=== PATIENT | female | born 1985 | race Caucasian/White ===

== ENCOUNTER 2022-04-01 09:15 | Outpatient (CLI) | payer OTHER, SELFPAY ==
[2022-04-01 14:10] LABS: Cholesterol* 184 mg/dL (90-199)
[2022-04-01 14:11] LABS: HDL Cholesterol* 39 mg/dL (>=50); LDL Cholesterol Calculated 108 mg/dL (<100); Triglycerides* 186 mg/dL (40-149)
[2022-04-01 14:23] LABS: Vitamin D 25 Hydroxy* 36 ng/mL (30-80)
== END 2022-04-01 09:16 | disposition home or self-care (01) ==
PROVIDERS: PCP Family Medicine; Visit Provider Family Medicine
DX: Z01.419 Encounter for gynecological examination (general) (routine) without abnormal findings (principal); N92.1 Excessive and frequent menstruation with irregular cycle; F41.9 Anxiety disorder, unspecified; Z13.6 Encounter for screening for cardiovascular disorders
CPT/HCPCS: 80061; 82306

== ENCOUNTER 2022-06-27 14:26 | Outpatient (CLI) | payer OTHER, SELFPAY ==
--- NOTE | 2022-06-27 15:00 | CRLHL7_ITS ---
For Patients: As a result of the Century Cures Act, medical imaging exams and procedure reports are released immediately into your electronic medical record. You may view this report before your referring provider. If you have questions, please contact your health care provider. INDICATION: Enlarged lymph nodes. TECHNIQUE: Ultrasound soft tissue neck. FINDINGS: Palpable lesion: Right neck under chin according to sales support assistant. Two structures measuring 1.4 x 0.9 x 1.2, and 1.1 x 0.5 x 0.8 cm. Sonographically, these appear to be lymph nodes. The larger lesion has hypoechoic nodular areas involving the lymph node cortex. The smaller lesion has slight asymmetrical thickening of the lymph node cortex. Both lymph nodes have a central echogenic fatty hilus. Miscellaneous: There are additional cervical lymph nodes in the right and left cervical chain with benign features. IMPRESSION: 1. Enlarged lymph nodes in the area of symptoms indicated. These demonstrate some atypical sonographic features. 2. Additional characterization could be performed with a CT scan of the neck or the lesions could be considered for image-guided sampling. 3. Nonspecific appearance of remaining bilateral cervical lymph nodes. Dictated by Flynn Wellington MD @ 06/30/2022 1:35:38 PM (Electronically Signed)
== END 2022-06-27 14:27 | disposition home or self-care (01) ==
PROVIDERS: PCP Family Medicine; Visit Provider Family Medicine
DX: R59.1 Generalized enlarged lymph nodes (principal)
CPT/HCPCS: 76536

== ENCOUNTER 2022-07-14 07:52 | Outpatient (CLI) | payer OTHER, SELFPAY ==
--- NOTE | 2022-07-14 08:00 | CRLHL7_ITS ---
For Patients: As a result of the Century Cures Act, medical imaging exams and procedure reports are released immediately into your electronic medical record. You may view this report before your referring provider. If you have questions, please contact your health care provider. INDICATION: Atypical lymph nodes. TECHNIQUE: CT of the neck soft tissues performed with IV contrast. Contrast: 95 cc Isovue 370. COMPARISON: Soft tissue neck ultrasound 06/27/2022. FINDINGS: The nasopharynx, oropharynx and hypopharynx appear unremarkable. The supraglottic, glottic and infraglottic spaces are preserved. The parotid and submandibular glands appear unremarkable. The thyroid gland is normal. A palpable marker is placed at the patient`s right submandibular region. There are prominent, however not enlarged by CT size criteria level 1A lymph nodes measuring up to 7 mm in maximal short axis diameter. Additional nonenlarged level 1B lymph nodes are noted. No suspicious CT features. The visualized major vascular structures appear intact. The visualized intracranial components appear grossly intact. Visualized orbits and contents appear unremarkable. The paranasal sinuses are clear as visualized. Lung apices are clear. Mild reversal of the cervical lordosis. IMPRESSION: Prominent, however nonenlarged by CT size criteria level 1A and 1B lymph nodes. These could be reactive, without suspicious CT features. Consider clinical and/or ultrasound follow-up as indicated to assess stability over time. Please note that all CT scans at this facility use dose modulation, iterative reconstruction, and/or weight-based dosing when appropriate to reduce radiation dose to as low as reasonably achievable. Dictated by Fernando Thompson MD @ 07/14/2022 3:57:13 PM (Electronically Signed)
== END 2022-07-14 07:53 | disposition home or self-care (01) ==
PROVIDERS: PCP Family Medicine; Visit Provider Family Medicine
DX: R59.1 Generalized enlarged lymph nodes (principal)
CPT/HCPCS: 70491; Q9967

== ENCOUNTER 2023-07-06 08:55 | Outpatient (CLI) | payer OTHER, SELFPAY | END 2023-07-06 08:56 | disposition home or self-care (01) | LOC: NFLDREF 07-18 00:57 | PROVIDERS: PCP Family Medicine; Referring Provider Family Medicine; Visit Provider Family Medicine | DX: R53.83 Other fatigue (principal); R73.03 Prediabetes; Z13.220 Encounter for screening for lipoid disorders; Z13.21 Encounter for screening for nutritional disorder | CPT/HCPCS: 80048; 80061; 82306; 84443 ==

== ENCOUNTER 2023-07-16 15:52 | Outpatient (CLI) | payer OTHER, SELFPAY ==
[2023-07-16 23:20] LABS: Chlamydia DNA Amplified* NOT DETECTED (No Detected); GC DNA Amplified* NOT DETECTED (No Detected)
== END 2023-07-16 15:53 | disposition home or self-care (01) ==
LOC: LKVREF 15:53
PROVIDERS: PCP Family Medicine; Visit Provider Family Medicine
DX: J02.9 Acute pharyngitis, unspecified (principal)
CPT/HCPCS: 87491; 87591

== ENCOUNTER 2023-07-27 08:43 | Outpatient (CLI) | payer OTHER, SELFPAY ==
[2023-07-27 16:10] LABS: Chlamydia DNA Amplified* NOT DETECTED (No Detected); GC DNA Amplified* NOT DETECTED (No Detected)
== END 2023-07-27 08:44 | disposition home or self-care (01) ==
PROVIDERS: PCP Family Medicine; Visit Provider Physician Assistant
DX: Z11.3 Encounter for screening for infections with a predominantly sexual mode of transmission (principal); N92.1 Excessive and frequent menstruation with irregular cycle
CPT/HCPCS: 83498; 84146; 84270; 84402; 84403; 84443; 84703; 86592; 86703; 86803; 87340; 87491; 87591

== ENCOUNTER 2023-08-03 13:34 | Outpatient (CLI) | payer OTHER, SELFPAY ==
--- NOTE | 2023-08-03 14:00 | US_ITS ---
Patient: JARVIS CLEMENSCOMBE Facility:?[facility] Patient ID:?[id number] Site Patient ID:?[id number]. Site :?[id number] Study:?US-Pelvis PELVIS TA & TV-08/03/2023 2:43:59 PM Ordering Physician:ELAINE JAIN Final Report: INDICATION: Excessive & frequent menstruation COMPARISON: none TECHNIQUE: 2D carmen scale and color Doppler images were acquired of the pelvis using a transabdominal and transvaginal approach. FINDINGS: Bicornuate or didelphys uterus. Right side of the uterus measures 7.7 x 3.5 x 3.8 cm and the left side of the uterus measures 8.4 x 3.1 x 3.4 cm. No uterine fibroid. The myometrium has a normal uniform echotexture. The endometrium measures 1.5 cm involving the right side and 0.7 cm involving the left side. The right ovary measures 3.2 x 1.5 x 1.7 cm in size and the left ovary measures 2.6 x 1.7 x 2.0 cm. The ovaries demonstrate normal arterial and venous blood flow on color Doppler analysis. There are no suspicious fluid collections within the cul-de-sac. Simple left ovarian cyst measures 1.8 x 1.3 x 1.3 cm. IMPRESSION: Right endometrial stripe measures 1.5 cm. Left endometrial stripe measures 7 millimeters. Dictated by Yasmany Puga MD @ 08/04/2023 6:39:41 PM Signed by:?Yasmany Puga MD @08/04/2023 6:39:41 PM (Electronic Signature)
== END 2023-08-03 13:35 | disposition home or self-care (01) ==
LOC: US 13:34
PROVIDERS: PCP Family Medicine; Visit Provider Physician Assistant
DX: N92.1 Excessive and frequent menstruation with irregular cycle (principal); R93.89 Abnormal findings on diagnostic imaging of other specified body structures
CPT/HCPCS: 76830; 76856

== ENCOUNTER 2023-10-20 07:18 | Day surgery (SDC) | payer OTHER, SELFPAY ==
[2023-10-20 07:28] VITALS: BMI 38.6
[2023-10-20] MEDS: LACTATED RINGERS 1000 ML 1,000 ML 100 ML IV (07:40)
[2023-10-20] MEDS: SODIUM CHLORIDE 0.9 % (FLUSH) 10 ML SYRINGE IVF (07:40)
[2023-10-20 07:47] VITALS: BP 130/55; PULSE 71; RESP 16; TEMP 36.6; O2SAT 96
[2023-10-20 08:00] LABS: Ur HCG Qualitative* Negative (Negative)
[2023-10-20 08:01] LABS: Hemoglobin* 11.6 gm/dL (12.0-16.0)
--- NOTE | 2023-10-20 08:46 | W.PM.H&PU ---
History & Physical Update History & Physical Update H&P Updates: Currently on her menstrual cycle. Endorses heavy bleeding.
--- NOTE | 2023-10-20 09:02 | W.ANESCHARGE ---
Anesthesia Charges Start Date/Time Anesthesia Start Date: 10/20/23 Anesthesia Start Time: 08:44 Stop Date/Time Anesthesia Stop Date: 10/20/23 Anesthesia Stop Time: 10:26
[2023-10-20 10:25] VITALS: BP 103/46; PULSE 67; RESP 16; TEMP 36.4; O2SAT 96
--- NOTE | 2023-10-20 10:25 | SUR.OPER ---
DEFICIT WAS 830ML
[2023-10-20 10:30] VITALS: BP 128/81; PULSE 57; RESP 16; O2SAT 93
[2023-10-20 10:45] VITALS: BP 120/73; PULSE 59; RESP 16; O2SAT 93
--- NOTE | 2023-10-20 10:46 | W.ANESCHARGE ---
Anesthesia Charges Start Date/Time Anesthesia Start Date: 10/20/23 Anesthesia Start Time: 08:44 Stop Date/Time Anesthesia Stop Date: 10/20/23 Anesthesia Stop Time: 10:26
[2023-10-20] MEDS: hydrOXYzine pamoate 25 MG CAPSULE PO (10:50)
[2023-10-20] MEDS: ACETAMINOPHEN 500 MG TABLET 1000 MG PO (10:51)
--- NOTE | 2023-10-20 10:51 | P.PCN_ITS ---
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 Surgeon: Ericka Hartman MD Coconut Jelly Roller: None Estimated blood loss: 10 mL UOP: 40 cc IVF: 1000 cc Specimen: Endometrial curettings to pathology from both uterine cavity (sent separately). Findings: Exam under anesthesia: To vaginal canals with midline vaginal septum noted. Two cervices. Uteri: midposition position, mobile, with no masses or nodularity palpable. Difficult to assess size of uteri. Right Uterus sounded to 7 cm. Left uterus sounded to 8 cm. No adnexal masses or nodularity palpable. Dilation of both cervices was extremely difficult so ultrasound guidance was utilized to decrease risk of creating false passage or perforation. On hysteroscopy: Left uterine cavity: unable to find tubal ostia. Endometrium appears thickened (patient is currently menstruating) but otherwise within normal limits. Right uterine cavity: Unable to find tubal ostia. Endometrium is markedly thickened with polypoid tissue noted throughout. Procedure: Lillie was taken to the operating operating room more conscious sedation was found to be adequate. The patient was placed on in the dorsal lithotomy position and an exam under anesthesia was performed with findings stated above. She was then prepped and draped in a normal sterile manner. A bivalve speculum was placed in the right and left vaginal canal 1 at a time. Both cervices were high and appeared nulliparous. Otherwise no abnormalities. The paracervical block was placed using 1% coater helper with epi, 2-5 mL was injected at the 4 and 8 o 'clock positions on the cervix. The anterior lip of the left cervix was grasped with a long Allis clamp. The cervix dilated to Hegar 6. The uterus sounded to 7 cm. The Truclear hysteroscope was advanced into the uterus. A diagnostic hysteroscopy was performed with normal saline as the insufflation medium. Findings are stated above. The Truclear incisor was then advanced through the camera. The curettage was performed with the incisor. The incisor was then removed. A sharp curette was performed under ultrasound guidance. Attention was then turned towards the assessment of the to right uterus. The anterior lip of the right cervix was grasped with a long Allis clamp. The cervix dilated to Hegar 6. The uterus sounded to 8 cm. The Truclear hysteroscope was advanced into the uterus. A diagnostic hysteroscopy was performed with normal saline as the insufflation medium. Findings are stated above. The Truclear incisor was then advanced through the camera. The curettage was performed with the incisor. The incisor was then removed. A sharp curette was performed under ultrasound guidance. Saline deficit at the end of the procedure 830 mL. Total saline used 3580 mL. Nothing required for hemostasis. The hysteroscope, Allis clamp and speculum were removed from the vaginal canal. The patient tolerated the procedure well. Sponge, lap and instrument counts were correct x2 at the end of the procedure. The patient was taken to the recovery area in stable condition. Surgical debrief performed and specimen reviewed.
[2023-10-20 11:00] VITALS: BP 103/68; PULSE 59; RESP 16; O2SAT 94
[2023-10-20 11:15] VITALS: BP 127/88; PULSE 59; RESP 16; O2SAT 92
== END 2023-10-20 11:30 | disposition home or self-care (01) ==
LOC: OR 07:19
PROVIDERS: PCP Family Medicine; Visit Provider Obstetrics & Gynecology
PROC: 0UDB8ZZ Extraction of Endometrium, Via Natural or Artificial Opening Endoscopic (ICD-10-PCS; CPT 58558; principal; 2023-10-20 08:30)
DX: N92.0 Excessive and frequent menstruation with regular cycle (principal); Q51.28 Other and unspecified doubling of uterus; R93.89 Abnormal findings on diagnostic imaging of other specified body structures; N85.00 Endometrial hyperplasia, unspecified
CPT/HCPCS: 58558; 00952; 36415; 76998; 81025; 85018; 86850; 86900; 86901; 88305; A9270; J1100; J1885; J2250; J2405; J2704; J3010; J7120

== ENCOUNTER 2023-11-06 13:40 | Outpatient (CLI) | payer OTHER, SELFPAY | END 2023-11-06 13:41 | disposition home or self-care (01) | LOC: NFLDREF 19:21 | PROVIDERS: PCP Family Medicine; Referring Provider Family Medicine; Visit Provider Obstetrics & Gynecology | DX: Z11.3 Encounter for screening for infections with a predominantly sexual mode of transmission (principal); Q51.28 Other and unspecified doubling of uterus; Z12.4 Encounter for screening for malignant neoplasm of cervix | CPT/HCPCS: 87491; 87591 ==

== ENCOUNTER 2023-11-30 10:22 | Outpatient (CLI) | payer OTHER, SELFPAY ==
--- NOTE | 2023-11-30 10:30 | CRLHL7_ITS ---
For Patients: As a result of the Century Cures Act, medical imaging exams and procedure reports are released immediately into your electronic medical record. You may view this report before your referring provider. If you have questions, please contact your health care provider. CLINICAL HISTORY: unspecified doubling of uterus COMPARISON: 10/20/2023 TECHNIQUE: [place] scale and color Doppler images were acquired of the kidneys and urinary bladder. FINDINGS: Sonographic images reveal a symmetric appearance of the kidneys. There is no evidence of hydronephrosis, mass or calculus. The right kidney measures 12.5cm in length and the left kidney measures 11.5cm in length. The renal cortex appears of normal thickness. Bladder volume prevoid 384 cc. Bladder volume postvoid 8 cc. Color Doppler images reveal a normal appearance of both ureteral jets. There is no evidence of bladder calculi or diverticula. Increased echotexture of the visualized liver. IMPRESSION: Normal renal ultrasound. Hepatic steatosis. Dictated by Yasmany Puga MD @ 11/30/2023 11:31:47 AM (Electronically Signed)
== END 2023-11-30 10:23 | disposition home or self-care (01) ==
PROVIDERS: PCP Family Medicine; Visit Provider Obstetrics & Gynecology
DX: Q51.28 Other and unspecified doubling of uterus (principal); K76.0 Fatty (change of) liver, not elsewhere classified
CPT/HCPCS: 76775

== ENCOUNTER 2024-01-01 14:08 | Outpatient (CLI) | payer OTHER, SELFPAY | END 2024-01-01 14:09 | disposition home or self-care (01) | PROVIDERS: PCP Family Medicine; Visit Provider Family Medicine | DX: E11.9 Type 2 diabetes mellitus without complications (principal); D64.9 Anemia, unspecified; E66.9 Obesity, unspecified; E28.2 Polycystic ovarian syndrome; K76.0 Fatty (change of) liver, not elsewhere classified; R73.03 Prediabetes | CPT/HCPCS: 80076; 82728; 83540 ==

== ENCOUNTER 2024-04-11 10:08 | Outpatient (CLI) | payer OTHER, SELFPAY | END 2024-04-11 10:09 | disposition home or self-care (01) | PROVIDERS: PCP Family Medicine; Visit Provider Family Medicine | DX: E11.9 Type 2 diabetes mellitus without complications (principal); D64.9 Anemia, unspecified; Z13.220 Encounter for screening for lipoid disorders | CPT/HCPCS: 80061; 82043; 82570; 82728 ==

== ENCOUNTER 2024-04-29 12:40 | Outpatient (CLI) | payer OTHER, SELFPAY | END 2024-04-29 12:41 | disposition home or self-care (01) | LOC: RAD 12:43 | PROVIDERS: PCP Family Medicine; Visit Provider Family Medicine | DX: Z82.49 Family history of ischemic heart disease and other diseases of the circulatory system (principal) | CPT/HCPCS: 93306 ==

== ENCOUNTER 2024-06-02 10:47 | Outpatient (CLI) | payer OTHER, SELFPAY ==
[2024-06-02 14:33] LABS: Bacterial Vaginosis* POSITIVE (Negative); Candida glab/krus NOT DETECTED (No Detected); Candida species DETECTED (No Detected); Trichomonas vaginalis NOT DETECTED (No Detected)
[2024-06-02 15:02] LABS: Chlamydia DNA Amplified* NOT DETECTED (No Detected); GC DNA Amplified* NOT DETECTED (No Detected)
== END 2024-06-02 10:48 | disposition home or self-care (01) ==
PROVIDERS: PCP Family Medicine; Visit Provider Registered Nurse
DX: N89.8 Other specified noninflammatory disorders of vagina (principal)
CPT/HCPCS: 81513; 87481; 87491; 87591; 87661

== ENCOUNTER 2024-06-14 09:37 | Outpatient (CLI) | payer OTHER, SELFPAY | END 2024-06-14 09:38 | disposition home or self-care (01) | PROVIDERS: PCP Family Medicine; Visit Provider Family Medicine | DX: E03.9 Hypothyroidism, unspecified (principal); R79.89 Other specified abnormal findings of blood chemistry; D64.9 Anemia, unspecified; E66.9 Obesity, unspecified; E11.9 Type 2 diabetes mellitus without complications | CPT/HCPCS: 80048; 82728; 84403; 84443 ==

== ENCOUNTER 2024-08-18 13:52 | Outpatient (CLI) | payer OTHER, SELFPAY ==
--- NOTE | 2024-08-30 12:11 | W.PM.SLEEP ---
Sleep Study Details Details Interpreting Provider: Davon Date of Sleep Study: 08/18/24 Sleep Study Details: STUDY TYPE:? Home unattended ? BMI:? 33.5 ORDERING PROVIDER:? Davon INDICATION:? Concern about sleep apnea ? SLEEP SUMMARY:? 490 minutes monitored RESPIRATORY SUMMARY:? AHI 46.5 Low oxygen 77 14.1% of study oxygen less than 90% Snoring 97.4% PERIODIC LIMB MOVEMENTS OF SLEEP:? Not recorded CARDIAC:? Range 55-104, mean 65.9 IMPRESSION:? Severe obstructive sleep apnea with significant hypo oxygenation RECOMMENDATION: Treatment options include CPAP. Dental appliance is unlikely to be effective. Weight loss may be beneficial.
== END 2024-08-18 13:53 | disposition home or self-care (01) ==
PROVIDERS: PCP Family Medicine; Visit Provider Otolaryngology
DX: G47.33 Obstructive sleep apnea (adult) (pediatric) (principal)
CPT/HCPCS: 95806

== ENCOUNTER 2024-09-23 08:03 | Outpatient (CLI) | payer OTHER, SELFPAY | END 2024-09-23 08:04 | disposition home or self-care (01) | LOC: NFLDREF 09-28 00:39 | PROVIDERS: PCP Family Medicine; Referring Provider Family Medicine; Visit Provider Family Medicine | DX: F41.9 Anxiety disorder, unspecified (principal); F32.A Depression, unspecified; E11.9 Type 2 diabetes mellitus without complications; E03.9 Hypothyroidism, unspecified; D64.9 Anemia, unspecified | CPT/HCPCS: 80053; 82306; 82607; 82728; 83540; 84443 ==

== ENCOUNTER 2024-12-23 13:43 | Outpatient (RCR) | payer OTHER, SELFPAY | END 2025-04-22 23:59 | disposition home or self-care (01) | PROVIDERS: PCP Family Medicine; Visit Provider Family Medicine | DX: M62.830 Muscle spasm of back (principal); Z51.89 Encounter for other specified aftercare | CPT/HCPCS: 97110; 97140; 97162 ==

== ENCOUNTER 2025-01-19 15:35 | Outpatient (CLI) | payer OTHER, SELFPAY ==
[2025-01-19 23:19] LABS: Chlamydia DNA Amplified* NOT DETECTED (No Detected); GC DNA Amplified* NOT DETECTED (No Detected)
== END 2025-01-19 15:36 | disposition home or self-care (01) ==
PROVIDERS: PCP Family Medicine; Visit Provider Registered Nurse
DX: Z11.3 Encounter for screening for infections with a predominantly sexual mode of transmission (principal); Z11.51 Encounter for screening for human papillomavirus (HPV); Z11.4 Encounter for screening for human immunodeficiency virus [HIV]; Z11.59 Encounter for screening for other viral diseases
CPT/HCPCS: 86592; 86703; 86803; 87340; 87491; 87591

== ENCOUNTER 2025-03-20 08:59 | Outpatient (CLI) | payer OTHER, SELFPAY | END 2025-03-20 09:00 | disposition home or self-care (01) | LOC: LKVREF 09:02 | PROVIDERS: PCP Family Medicine; Visit Provider Obstetrics & Gynecology | DX: N39.0 Urinary tract infection, site not specified (principal) | CPT/HCPCS: 87086 ==